=== PATIENT | female | born 1980 ===

== ENCOUNTER 2017-11-16 07:52 | Emergency (ER) | payer OTHER ==
[~2017-11-16] VITALS: Ht 162.6 cm; Wt 59.0 kg
== END 2017-11-16 10:40 | disposition home or self-care (01) ==
LOC: ER 07:52
DX: S93.492A Sprain of other ligament of left ankle, initial encounter (principal); X50.9XXA Other and unspecified overexertion or strenuous movements or postures, initial encounter; Y93.01 Activity, walking, marching and hiking; Y92.89 Other specified places as the place of occurrence of the external cause; Y99.8 Other external cause status